=== PATIENT | female | born 2005 | race Caucasian/White ===

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

== ENCOUNTER → 2024-02-01 11:12 | Outpatient (BNVA) | payer SELFPAY | PROVIDERS: PCP Internal Medicine | DX: Z02.83 Encounter for blood-alcohol and blood-drug test (principal) ==

== ENCOUNTER 2024-03-06 09:01 | Outpatient (AMB) | payer OTHER, SELFPAY ==
--- NOTE | 2024-03-06 09:07 | A.OFFPC_ITS ---
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, physical request Gas Welder Apprentice Required: No Accompanied by: Self / Same As Patient Allergies No Known Allergies Allergy (Verified 03/06/24 09:15) Medication List - Last Reconciled 03/06/24 by Mariajose Jones MD tretinoin 0.025% appl topical Tobacco use date assessed: 03/06/24 Dental Screening Dental Screen Date: 03/06/24 Did you have a dental visit in the last 12 months?: Yes Did you have a dental problem in the last 6 months where you did not have access to dental care?: No Was dental information given to patient?: Patient has dentist HPI HPI Comments History of Present Illness Details This is a 19-year-old female that comes for her physical exam as new patient. Has seen OBGYN but is unsure if she had a Pap smear or not. She would like to be local in [place] for OBGYN. No acute complaints. Has mild major depression and follows with counseling. Also has lost of attention and would like to be screened for ADD. [facility] Surgical History No pertinent past surgical history Family History Mother No problems noted. Father No problems noted. Maternal Grandfather Cancer Maternal Grandmother Mental health disorder Social History Housing: House Alcohol intake: current Alcohol intake frequency: holidays/special occasions only Alcohol type: other Patient Tobacco Use Status: Never used Tobacco e-Cigarette/Vaping Use: Never Used Second Hand Smoke Exposure: No service: No Current occupational status: employed Current occupational exposures/hazards: No Cognitive needs: No Hearing needs: No Vision needs: No Questionnaire PHQ-9 Over the last 2 weeks, how often have you been bothered by any of the following problems? 1. Little interest or pleasure in doing things: several days 2. Feeling down, depressed, or hopeless: not at all 3. Trouble falling or staying asleep, or sleeping too much: not at all 4. Feeling tired or having little energy: several days 5. Poor appetite or overeating: not at all 6. Feeling bad about yourself - or that you are a failure or have let yourself or your family down: not at all 7. Trouble concentrating on things, such as reading the newspaper or watching television: several days 8. Moving or speaking so slowly that other people could have noticed. Or the opposite - being so fidgety or restless that you have been moving around a lot more than usual: not at all 9. Thoughts that you would be better off or of hurting yourself in some way: not at all Total score: 3 Depression Screening Interpretation: Positive Depression Screening Follow-up: Existing condition, Community Mental Health Worker F/U and Follow-up Visit Requested Depression Screening Done: Yes 02989 - PHQ-9 Billing: Yes Source: Developed by Drs. Keagan Wellington, Laura Walls, Caio Ribera and colleagues, with an educational kriss from [employer]. Thrive Questionnaire Date Thrive assessed: 02/28/24 I am a: Patient What is your living situation today?: I have a steady place to live Within the past 12 months, did the food you bought not last and you didn't have the money to get more?: Never true Within the past 12 months, did you worry whether your food would run out before you got money to buy more?: Never true Do you have trouble paying for medicines?: No Do you have trouble getting transportation to medical appointments?: No Do you have trouble paying your heating and electricity bill?: No Do you have trouble taking care of your child, family member or friend?: No Do you have trouble with day-to-day activities such as bathing, preparing meals, shopping, managing finances, etc.?: No Are you currently unemployed and looking for a job?: No Are you interested in more education?: Yes Please select the resources that you would like help with: None Currently or been in a relationship where the following occur: No concerns reported THRIVE Score: 0 AUDIT C Alcohol Use Questionnaire (AUDIT-C) 1. How often do you have a drink containing alcohol?: Monthly or less 2. How many drinks containing alcohol do you have on a typical day when you are drinking?: 1 or 2 3. How often do you have six or more drinks on one occasion?: Never Total Score: 1 Score Reviewed/Action Taken: No JESENIA-7 AMB Questionnaire JESENIA-7 Date JESENIA - 7 assessed: 03/06/24 Feeling nervous, anxious, or on edge: 1 = Several days Not being able to stop or control worryin = Not at all Worrying too much about different things: 0 = Not at all Trouble relaxin = Not at all Being so restless that it is hard to sit still: 1 = Several days Becoming easily annoyed or irritable: 0 = Not at all Feeling afraid as if something awful might happen: 0 = Not at all Total JESENIA-7 score (0-4 normal; 5-9 mild; 10-14 moderate; 15-21 severe): 2 Source: Developed by Drs. Keagan Wellington, Laura Walls, Caio Ribera and colleagues, with an educational kriss from [employer]. JESENIA-7 Assessment Billing JESENIA-7 Assessment Tool: JESENIA-7 Assessment 87590 Review of Systems Const All systems reviewed & are unremarkable except as noted in HPI and below Card Denies chest pain at rest, Denies chest pain with activity, Denies edema, Denies irregular heart rhythm, Denies claudication, Denies dyspnea, Denies dyspnea on exertion, Denies orthopnea, Denies paroxysmal nocturnal dyspnea and Denies slow heart rate Resp Denies cough, Denies dyspnea and Denies dyspnea on exertion GI Denies abdominal pain, Denies change in bowel habits, Denies excessive flatus, Denies nausea and Denies vomiting Denies urinary incontinence, Denies urinary hesitancy and Denies urinary urgency Physical exam (Primary Care) Vital Signs: Last Vital Signs BP 120/72 03/06/24 09:08 BMI result Body Mass Index 21.4 Tobacco/Smoking Status: Tobacco use Status Tobacco use date assessed 03/06/24 03/06/24 09:14 Patient Tobacco Use Status Never used Tobacco 03/06/24 09:14 e-Cigarette/Vaping Use Never Used 03/06/24 09:14 PHQ-9: PHQ-9 Score PHQ-9: Total score 3 03/06/24 09:14 Depression Screening Interpretation: Positive Depression Screening Follow-up: Existing condition, Community Mental Health Worker F/U and Follow-up Visit Requested Thrive Assessment: Date of Thrive Assessment Date Thrive assessed 02/28/24 03/06/24 09:14 Currently or been in a relationship where the following occur: No concerns reported [facility] Head: Yes normal to inspection, Yes normocephalic and Yes atraumatic Ears: external ears normal Eyes General: appearance normal, both eyes and all related structures Eyelids: Yes eyelids normal Conjunctivae: conjunctivae normal Neck Neck: Yes normal visual inspection and Yes supple Resp Effort & Inspection: normal respiratory effort Auscultation: clear to auscultation bilaterally Cardio Jugular venous distension: no JVD Rate: regular rate Rhythm: regular rhythm Heart sounds: S1 normal heart sound present and S2 normal heart sound present GI Inspection: Yes normal to inspection Palpation (GI): Soft to palpation and nontender Auscultation: normal bowel sounds Skin General skin exam: no rashes or lesions noted Neuro General: no focal motor deficits Extrem General: Yes full ROM Psych Appearance: grossly normal Assessment and Plan Assessment & Plan (1) Physical exam: Code(s): Z00.00 - Encounter for general adult medical examination without abnormal findings Plan: Repeat in a year. (2) ADD (attention deficit disorder): Code(s): F98.8 - Other specified behavioral and emotional disorders with onset usually occurring in childhood and adolescence Qualifiers: Attention deficit type: unspecified type Qualified Code(s): F98.8 - Other specified behavioral and emotional disorders with onset usually occurring in childhood and adolescence (3) Mild major depression: Comment: Follows with counseling Code(s): F32.0 - Major depressive disorder, single episode, mild Plan: Continue counseling. Orders: Orders Lipid Panel Today Z00.00 - Encounter for general adult medical examination without abnormal findings Varicella IgG Antibody Today Z23 - Encounter for immunization T Spot TB Today Z11.1 - Encounter for screening for respiratory tuberculosis Comprehensive [place]. Panel Fast Today Z00.00 - Encounter for general adult medical examination without abnormal findings Mumps Virus IgG Antibody Today Z23 - Encounter for immunization Rubella IgG Antibody Today Z23 - Encounter for immunization Rubeola IgG (Measles) Today Z23 - Encounter for immunization Hepatitis B Profile Today Z23 - Encounter for immunization Referrals YEAST PUMPER Referral Z01.419 - Encounter for gynecological examination (general) (routine) without abnormal findings Psychiatry Outpatient Consultation Service F98.8 - Other specified behavioral and emotional disorders with onset usually occurring in childhood and adolescence Coding Level of Care Code New Pt Level 3 (18336) New Pt Prev Care 18-39yr(92723 Diagnoses Physical exam Z00.00 Attention deficit disorder, unspecified type F98.8 Attention deficit type: unspecified type Mild major depression F32.0 Additional Codes JESENIA-7 Assessment Billing - JESENIA-7 Assessment Tool: JESENIA-7 Assessment 24436 ([id number]) Time Spent (min) 33
[2024-03-06 09:08] VITALS: BP 120/72; BMI 21.4
== END 2024-03-06 09:26 | disposition home or self-care (01) ==
PROVIDERS: PCP Internal Medicine; Visit Provider Internal Medicine
DX: Z00.00 Encounter for general adult medical examination without abnormal findings (principal); F98.8 Other specified behavioral and emotional disorders with onset usually occurring in childhood and adolescence; F32.0 Major depressive disorder, single episode, mild
CPT/HCPCS: 99385

== ENCOUNTER 2024-03-06 09:47 | Outpatient (REF) | payer OTHER, SELFPAY ==
[2024-03-06 11:16] LABS: Alanine Aminotransferase 14 U/L (0-31); Albumin Level 4.7 g/dL (3.5-5.0); Alkaline Phosphatase 68 U/L (39-117); Anion Gap 10 (12-20); Aspartate Amino Transferase 18 U/L (5-31); Blood Urea Nitrogen 12 mg/dL (9-16); Calcium 9.8 mg/dL (8.4-10.2); Carbon Dioxide 26 mmol/L (22-29); Chloride 105 mmol/L (96-108); Cholesterol 176 mg/dL (<200); Estimated Glomerular Filt Rate > 60; Glucose Fasting 87 mg/dL (60-99); HDL Cholesterol 70 mg/dL (>40); LDL Cholesterol Calculated 99 mg/dL (<100); Potassium 3.9 mmol/L (3.3-5.1); Sodium 137 mmol/L (135-145); Total Protein 7.7 g/dL (6.5-8.0); Triglycerides 39 mg/dL (<150)
[2024-03-06 11:35] LABS: HBc Num1 0.09 S/CO (0.00-0.79); HBsAGNum1 0.25 S/CO (0.00-0.99); Hepatitis B Core Antibody Nonreactive (Nonreactive); Hepatitis B Surface Antigen Negative (Negative); ~Hepatitis B Surface Antibody REACTIVE (Nonreactive)
[2024-03-09 00:39] LABS: TS Negative Control Passed; TS Panel A 0; TS Panel B 0; TS Positive Control Passed; TSpotTB Negative (Negative)
== END 2024-03-06 09:48 | disposition home or self-care (01) ==
LOC: HO.LAB 09:47
PROVIDERS: PCP Internal Medicine; Visit Provider Internal Medicine
DX: Z00.00 Encounter for general adult medical examination without abnormal findings (principal); Z11.1 Encounter for screening for respiratory tuberculosis; Z23 Encounter for immunization
CPT/HCPCS: 36415; 80053; 80061; 86481; 86704; 86706; 86735; 86762; 86765; 86787; 87340

== ENCOUNTER 2024-05-12 11:20 | Outpatient (REF) | payer OTHER, SELFPAY ==
[2024-05-12 18:19] LABS: Bacterial Vaginosis PCR NEGATIVE (Negative); Candida Group PCR NOT DETECTED (Not Detect); Candida glab krusei PCR NOT DETECTED (Not Detect); Trichomonas vaginalis PCR NOT DETECTED (Not Detect)
[2024-05-13 05:14] LABS: CT PCR NOT DETECTED (Not Detect.); NG PCR NOT DETECTED (Not Detect.)
[2024-05-19 12:21] LABS: HPV 16,18/45 See PAP report
== END 2024-05-12 11:21 | disposition home or self-care (01) ==
LOC: HO.LAB 11:20
PROVIDERS: PCP Internal Medicine; Visit Provider Advanced Practice Midwife
DX: N89.8 Other specified noninflammatory disorders of vagina (principal)
CPT/HCPCS: 0352U; 36415; 87491; 87591; 87625; 88175

== ENCOUNTER 2024-05-12 11:20 | Outpatient (AMB) | payer OTHER, SELFPAY ==
[2024-05-12 11:24] VITALS: BP 100/62; BMI 21.4
--- NOTE | 2024-05-12 11:24 | MHC.OFFVIS ---
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 She is sexually active with her partner in stable relationship. She uses condoms for control and if 1 broke she would use B she is very aware of her cycle and tracks it and says it is a 28 day cycle and she is paying attention to the parts of her cycle. 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 She is contemplating either midwifery or labor and delivery or nursery/NICU care. She was at 2 births when she was younger at the [facility] with her aunt and her mother. She went to [facility] for pediatric care and has her immunization records on her phone in looked up together that she did in fact get the HPV vaccine all 3 in the series, She is not interested in any other artificial means of control for now. She has access to plan B if she needs it and declined a prescription. We discussed getting tested for other STIs but she thinks she is okay for now and if she decided she needed them she would inquire and ask. [facility] Surgical History No pertinent past surgical history Family History Mother No problems noted. Father No problems noted. Maternal Grandfather Cancer Maternal Grandmother Mental health disorder Social History Housing: House Alcohol intake: current Alcohol intake frequency: holidays/special occasions only Alcohol type: other Patient Tobacco Use Status: Never used Tobacco e-Cigarette/Vaping Use: Never Used Second Hand Smoke Exposure: No service: No Current occupational status: employed Current occupational exposures/hazards: No Cognitive needs: No Hearing needs: No Vision needs: No Female Reproductive History Menstrual Age of Menarche: 9 Duration of menses: 3-5 days Date of last menstrual period: 05/07/24 control method: none Total pregnancies: 0 Physical Exam Vital Signs: Last Vital Signs BP 100/62 05/12/24 11:24 BMI result Body Mass Index 21.4 Const General: healthy appearing, comfortable, no acute distress, well developed and alert Nutritional Appearance: average body habitus Orientation/consciousness: patient oriented x3 Limitations: no limitations HEENT Head: Yes normocephalic Neck Neck: Yes normal visual inspection Chest Chest palpation & inspection: normal inspection of the chest Breast/axilla inspection: normal inspection of the breasts and normal inspection of the axillae Breast/axilla palpation: normal palpation of the breasts and normal palpation of the axillae Resp Effort & Inspection: normal respiratory effort GI Inspection: Yes normal to inspection, No Abdominal wall edema and No distended Palpation (GI): Soft to palpation and nontender Other: Speculum exam vagina pink and clear cervix nulliparous pink smooth healthy appearing uterus small midposition mobile nontender bladder is full adnexa nontender good tone. General: Yes bladder normal to palpation External Female Exam: normal external appearance and normal appearance of the urethra Speculum Exam - Vagina: normal appearance of the vagina, normal palpation and normal vaginal discharge Speculum Exam - Cervix: normal appearance of the cervix, normal palpation and nontender Bimanual exam- vagina & uterus: normal bimanual exam, normal palpation, uterine size normal, bladder normal to palpation, consistency normal, normal palpation, uterine mobility normal, uterine shape normal, No Cervical tenderness present, non-tender and no cervical motion tenderness Bimanual Exam- Adnexa, other: normal adnexae, no masses, normal and No adnexal tenderness Neuro General: patient oriented x3 Assessment & Plan Assessment & Plan (1) Women's annual routine gynecological examination: Code(s): Z01.419 - Encounter for gynecological examination (general) (routine) without abnormal findings Category: Medical (2) Cervical cancer screening: Comment: . Patient had full series of HPV vaccines at [facility]. First Pap done 05/12/2024 Code(s): Z12.4 - Encounter for screening for malignant neoplasm of cervix Category: Medical (3) control counseling: Comment: Uses condoms 100% of the time. Would use plan B if 1 broke, declines other means... Code(s): Z30.09 - Encounter for other general counseling and advice on contraception Category: Medical Plan She is here for First vacuum pan tender visit. She is sexually active with her partner in stable relationship. She uses condoms for control and if 1 broke she would use B she is very aware of her cycle and tracks it and says it is a 28 day cycle and she is paying attention to the parts of her cycle. 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 She is contemplating either midwifery or labor and delivery or nursery/NICU care. She was at 2 births when she was younger at the [facility] with her aunt and her mother. She went to [facility] for pediatric care and has her immunization records on her phone in looked up together that she did in fact get the HPV vaccine all 3 in the series, She is not interested in any other artificial means of control for now. She has access to plan B if she needs it and declined a prescription. We discussed getting tested for other STIs but she thinks she is okay for now and if she decided she needed them she would inquire and ask. -----Discussed in this visit the following: healthy balanced diet, regular and consistent exercise, getting recommended health screens, doing the best she can for her particular health concerns, kegel exercises, pap smear screening and followup recommendations, mammography screening and SBE, normal changes in cycles in her life stage--- . RTC 1 year. Coding Level of Care Code New Pt Prev Care 18-39yr([id number] Diagnoses Women's annual routine gynecological examination Z01.419 Cervical cancer screening Z12.4 control counseling Z30.09
== END 2024-05-12 12:08 | disposition home or self-care (01) ==
PROVIDERS: PCP Internal Medicine; Visit Provider Advanced Practice Midwife
DX: Z01.419 Encounter for gynecological examination (general) (routine) without abnormal findings (principal); Z12.4 Encounter for screening for malignant neoplasm of cervix; Z30.09 Encounter for other general counseling and advice on contraception
CPT/HCPCS: 99385

== ENCOUNTER 2025-01-15 13:22 | Outpatient (AMB) | payer OTHER, SELFPAY ==
--- NOTE | 2025-01-15 13:34 | AM.OFFVISNUR ---
Intake Visit Reasons: Tdap Allergies No Known Allergies Allergy (Verified 05/12/24 11:24) Immunizations Boostrix Tdap 2.5 Lf unit-8 mcg-5 Lf/0.5 mL intramuscular syringe Performing Provider: Mariajose Jones MD [facility] Administered by: Sherry Flores LPN on 01/15/25 13:34 Dose Route Admin Location Dispensed Lot Number Expiration Date [facility] Technical Services Librarian 0.5 mL IM Left Deltoid 0.5 mL [id number] 03/14/27 74699-052-75 [employer] Total Dispensed Waste 0.5 mL 0 % VIS Given Date VIS Provided VIS Publication Date 01/15/25 Single Vaccine 21 Eligibility Eligibility Date Funding Source Not [facility] Eligible 01/15/25 Private Assessment & Plan Assessment & Plan Orders: Orders TDaP Immunization Today Z23 - Encounter for immunization Coding
== END 2025-01-15 13:35 | disposition home or self-care (01) ==
LOC: HO.HMCH 13:23
PROVIDERS: PCP Internal Medicine; Visit Provider Internal Medicine
DX: Z23 Encounter for immunization (principal)

== ENCOUNTER → 2025-01-15 13:22 | Outpatient (BNVA) | payer OTHER, SELFPAY | PROVIDERS: PCP Internal Medicine; Visit Provider Internal Medicine | DX: Z23 Encounter for immunization (principal) | CPT/HCPCS: 90471; 90715 ==

== ENCOUNTER 2025-02-24 14:05 | Outpatient (AMB) | payer OTHER, SELFPAY ==
--- NOTE | 2025-02-24 14:12 | AM.OFFVISNUR ---
Intake Visit Reasons: PPD plant Allergies No Known Allergies Allergy (Verified 05/12/24 11:24) Office Meds tuberculin PPD 5 tub. unit/0.1 mL intradermal injection solution Performing Provider: Mariajose Jones MD Performing Location[facility] [place] [place] [facility] Administered by: Nat Ordonez RN on 02/24/25 14:13 Dose Route Admin Location Dispensed Lot Number Expiration Date [facility] Plate Colorer 0.1 mL intradermal left forarm 0.1 mL [id number] 05/14/25 45134-804-57 [employer] Total Dispensed Waste 0.1 mL 0 % Assessment & Plan Assessment & Plan Orders: Orders AMB PPD Planted Today Z11.1 - Encounter for screening for respiratory tuberculosis Coding
== END 2025-02-24 14:18 | disposition home or self-care (01) ==
LOC: HO.HMCH 14:06
PROVIDERS: PCP Internal Medicine; Visit Provider Internal Medicine
DX: Z11.1 Encounter for screening for respiratory tuberculosis (principal)

== ENCOUNTER → 2025-02-24 14:05 | Outpatient (BNVA) | payer OTHER, SELFPAY | PROVIDERS: PCP Internal Medicine; Visit Provider Internal Medicine | DX: Z11.1 Encounter for screening for respiratory tuberculosis (principal) | CPT/HCPCS: 86580 ==

== ENCOUNTER 2025-03-02 08:39 | Outpatient (AMB) | payer OTHER, SELFPAY ==
--- NOTE | 2025-03-02 08:41 | MHC.PC.OV ---
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 Accompanied by: Self / Same As Patient Allergies No Known Allergies Allergy (Verified 03/02/25 08:51) Medication List - Last Reconciled 03/02/25 by Mariajose Joens MD tretinoin 0.025% appl topical Tobacco use date assessed: 03/02/25 Dental Screening Dental Screen Date: 03/02/25 Did you have a dental visit in the last 12 months?: No Did you have a dental problem in the last 6 months where you did not have access to dental care?: No Was dental information given to patient?: No HPI HPI Comments History of Present Illness Details The patient is a 20-year-old female presenting for a physical examination and preventative care. She received the Tdap vaccine this year, with the next dose due in 2034. A Pap smear was performed last year, and the results were normal. The patient reports using Tretinoin cream for acne management. She has no known drug allergies and is not taking any other medications. Her past surgical history includes wisdom teeth extraction one month ago, which had an uncomplicated recovery. There is no family history of chronic medical conditions such as hypertension or diabetes. The patient denies smoking and reports alcohol consumption only on special occasions. She denies any symptoms of depression or anxiety. [facility] Medical History (Updated 03/02/25 @ 09:00 by Mariajose Jones MD) Mild major depression Surgical History No pertinent past surgical history Family History Mother No problems noted. Father No problems noted. Maternal Grandfather Cancer Maternal Grandmother Mental health disorder Social History Housing: House Alcohol intake: current Alcohol intake frequency: holidays/special occasions only Alcohol type: other Patient Tobacco Use Status: Never used Tobacco e-Cigarette/Vaping Use: Never Used Second Hand Smoke Exposure: No service: No Current occupational status: employed Current occupational exposures/hazards: No Cognitive needs: No Hearing needs: No Vision needs: No Female Reproductive History Menstrual Age of Menarche: 9 Questionnaire PHQ-9 Over the last 2 weeks, how often have you been bothered by any of the following problems? 1. Little interest or pleasure in doing things: not at all 2. Feeling down, depressed, or hopeless: not at all 3. Trouble falling or staying asleep, or sleeping too much: not at all 4. Feeling tired or having little energy: not at all 5. Poor appetite or overeating: not at all 6. Feeling bad about yourself - or that you are a failure or have let yourself or your family down: not at all 7. Trouble concentrating on things, such as reading the newspaper or watching television: not at all 8. Moving or speaking so slowly that other people could have noticed. Or the opposite - being so fidgety or restless that you have been moving around a lot more than usual: not at all 9. Thoughts that you would be better off or of hurting yourself in some way: not at all Total score: 0 Depression Screening Interpretation: Negative Depression Screening Done: Yes 32571 - PHQ-9 Billing: Yes Source: Developed by Drs. Keagan Wellington, Laura Walls, Caio Ribera and colleagues, with an educational kriss from [employer]. Thrive Questionnaire Date Thrive assessed: 03/02/25 I am a: Patient What is your living situation today?: I have a steady place to live Within the past 12 months, did the food you bought not last and you didn't have the money to get more?: Never true Within the past 12 months, did you worry whether your food would run out before you got money to buy more?: Never true Do you have trouble paying for medicines?: No Do you have trouble getting transportation to medical appointments?: No Do you have trouble paying your heating and electricity bill?: No Do you have trouble taking care of your child, family member or friend?: No Do you have trouble with day-to-day activities such as bathing, preparing meals, shopping, managing finances, etc.?: No Are you currently unemployed and looking for a job?: No Are you interested in more education?: No Please select the resources that you would like help with: None Currently or been in a relationship where the following occur: No concerns reported THRIVE Score: 0 AUDIT C Alcohol Use Questionnaire (AUDIT-C) 1. How often do you have a drink containing alcohol?: Monthly or less 2. How many drinks containing alcohol do you have on a typical day when you are drinking?: 1 or 2 3. How often do you have six or more drinks on one occasion?: Never Total Score: 1 Score Reviewed/Action Taken: No JESENIA-7 AMB Questionnaire JESENIA-7 Date JESENIA - 7 assessed: 03/02/25 Feeling nervous, anxious, or on edge: 1 = Several days Not being able to stop or control worryin = More than half the days Worrying too much about different things: 3 = Nearly every day Trouble relaxin = More than half the days Being so restless that it is hard to sit still: 2 = More than half the days Becoming easily annoyed or irritable: 1 = Several days Feeling afraid as if something awful might happen: 1 = Several days Total JESENIA-7 score (0-4 normal; 5-9 mild; 10-14 moderate; 15-21 severe): 12 Source: Developed by Drs. Keagan Wellington, Laura Walls, Caio Ribera and colleagues, with an educational kriss from [employer]. JESENIA-7 Assessment Billing JESENIA-7 Assessment Tool: JESENIA-7 Assessment 02941 Review of Systems Const All systems reviewed & are unremarkable except as noted in HPI and below Card Denies chest pain at rest, Denies chest pain with activity, Denies edema, Denies irregular heart rhythm, Denies claudication, Denies dyspnea, Denies dyspnea on exertion, Denies orthopnea, Denies paroxysmal nocturnal dyspnea and Denies slow heart rate Resp Denies cough, Denies dyspnea and Denies dyspnea on exertion GI Denies abdominal pain, Denies change in bowel habits, Denies excessive flatus, Denies nausea and Denies vomiting Physical exam (Primary Care) Vital Signs: Last Vital Signs Pulse 77 03/02/25 08:42 BP 116/60 03/02/25 08:42 Pulse Ox 96 03/02/25 08:42 Oxygen Delivery Method Room Air 03/02/25 08:42 BMI result Body Mass Index 20.8 Tobacco/Smoking Status: Tobacco use Status Tobacco use date assessed 03/02/25 03/02/25 08:47 Patient Tobacco Use Status Never used Tobacco 03/02/25 08:47 e-Cigarette/Vaping Use Never Used 03/02/25 08:47 PHQ-9: PHQ-9 Score PHQ-9: Total score 0 03/02/25 08:47 Depression Screening Interpretation: Negative Thrive Assessment: Date of Thrive Assessment Date Thrive assessed 03/02/25 03/02/25 08:47 Currently or been in a relationship where the following occur: No concerns reported HENMT Head: Yes normal to inspection, Yes normocephalic and Yes atraumatic Ears: external ears normal Eyes General: appearance normal, both eyes and all related structures Eyelids: Yes eyelids normal Conjunctivae: conjunctivae normal Neck Neck: Yes normal visual inspection and Yes supple Resp Effort & Inspection: normal respiratory effort Auscultation: clear to auscultation bilaterally Cardio Jugular venous distension: no JVD Rate: regular rate Rhythm: regular rhythm Heart sounds: S1 normal heart sound present and S2 normal heart sound present GI Inspection: Yes normal to inspection Palpation (GI): Soft to palpation and nontender Auscultation: normal bowel sounds Skin General skin exam: no rashes or lesions noted Neuro General: no focal motor deficits Extrem General: Yes full ROM Psych Appearance: grossly normal Coding Level of Care Code Est Pt Prev Care 18-39y(43507) Diagnoses Physical exam Z00.00 Additional Codes JESENIA-7 Assessment Billing - JESENIA-7 Assessment Tool: JESENIA-7 Assessment 32471 ([id number]) PHQ-9 - 50226 - PHQ-9 Billing: Yes ([id number]) Time Spent (min) 30 Assessment & Plan Assessment & Plan (1) Physical exam: Code(s): Z00.00 - Encounter for general adult medical examination without abnormal findings Category: Medical Plan The patient will continue with her current acne management using Tretinoin cream, with the understanding that it should be discontinued if occurs. No additional blood work is deemed necessary this year due to normal results from the previous year and no significant changes in health status. The patient is advised to maintain her current preventative care schedule, with the next Tdap vaccine due in 2034 and regular Pap smears as recommended. Patient was informed and verbally consented to the use of an ambient scribe for clinic note documentation during this visit.
[2025-03-02 08:42] VITALS: BP 116/60; PULSE 77; O2SAT 96; BMI 20.8
== END 2025-03-02 09:02 | disposition home or self-care (01) ==
LOC: HO.HMCH 08:40
PROVIDERS: PCP Internal Medicine; Visit Provider Internal Medicine
DX: Z00.00 Encounter for general adult medical examination without abnormal findings (principal)

== ENCOUNTER → 2025-03-02 08:39 | Outpatient (BNVA) | payer OTHER, SELFPAY | PROVIDERS: PCP Internal Medicine; Visit Provider Internal Medicine | DX: Z00.00 Encounter for general adult medical examination without abnormal findings (principal) | CPT/HCPCS: 96127 ==

== ENCOUNTER 2025-03-05 13:11 | Outpatient (REF) | payer OTHER, SELFPAY ==
[2025-03-08 08:33] LABS: TS Negative Control Passed; TS Panel A 0; TS Panel B 2; TS Positive Control Passed; TSpotTB Negative (Negative)
== END 2025-03-05 13:12 | disposition home or self-care (01) ==
LOC: HO.LAB 13:11
PROVIDERS: PCP Internal Medicine; Visit Provider Internal Medicine
DX: Z11.1 Encounter for screening for respiratory tuberculosis (principal)
CPT/HCPCS: 36415; 86481